=== PATIENT | female | born 1980 | race Caucasian/White ===

== ENCOUNTER 2018-05-11 14:36 | Emergency (ER) | payer MEDICAID, OTHER ==
[~2018-05-11] VITALS: Ht 152.4 cm; Wt 45.4 kg
[2018-05-11 14:40] VITALS: BP 107/72
[2018-05-11] MEDS ORDERED: TDAP [DIPH/PERTUSSIS/TET] 0.5 ML VIAL IM ONE (14:53)
[2018-05-11] MEDS: TDAP [DIPH/PERTUSSIS/TET] 0.5 ML VIAL IM ONE ×2 (15:00→15:02)
== END 2018-05-11 15:10 | disposition home or self-care (01) ==
LOC: ER 14:41
DX: S80.811A Abrasion, right lower leg, initial encounter (principal); Z88.6 Allergy status to analgesic agent; W45.0XXA Nail entering through skin, initial encounter; Y93.89 Activity, other specified; Y92.89 Other specified places as the place of occurrence of the external cause; Y99.8 Other external cause status
CPT/HCPCS: 90471; 90715; 99283; A4606